=== PATIENT | male | born 1970 | race Caucasian/White ===

== ENCOUNTER 2016-09-30 21:47 | Emergency (ER) | payer OTHER ==
[~2016-09-30] VITALS: Ht 182.9 cm; Wt 90.9 kg
[2016-09-30] MEDS ORDERED: KETOROLAC 30 MG/1 ML ONE (22:49)
[2016-09-30] MEDS ORDERED: KETOROLAC 30 MG/1 ML IM ONE (23:00)
[2016-10-01 00:11] VITALS: BP 122/77
== END 2016-10-01 00:13 | disposition home or self-care (01) ==
LOC: ED 23:59
DX: S16.1XXA Strain of muscle, fascia and tendon at neck level, initial encounter (principal); S29.012A Strain of muscle and tendon of back wall of thorax, initial encounter; Z87.891 Personal history of nicotine dependence; V49.49XA Driver injured in collision with other motor vehicles in traffic accident, initial encounter; Y93.89 Activity, other specified; Y92.410 Unspecified street and highway as the place of occurrence of the external cause; Y99.9 Unspecified external cause status
CPT/HCPCS: 71010; 72125; 96372; 99284; J1885